=== PATIENT | female | born 2000 | race Caucasian/White ===

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

== ENCOUNTER 2019-05-05 19:53 | Emergency (ER) | payer SELFPAY ==
[~2019-05-05] VITALS: Ht 167.6 cm; Wt 80.5 kg
[2019-05-05 20:13] VITALS: Ht 167.6 cm; Wt 80.5 kg
[2019-05-05 21:55] VITALS: BP 100/70
== END 2019-05-05 21:45 | disposition home or self-care (01) ==
LOC: ED 19:53
DX: S83.004A Unspecified dislocation of right patella, initial encounter (principal); S86.911A Strain of unspecified muscle(s) and tendon(s) at lower leg level, right leg, initial encounter; W18.30XA Fall on same level, unspecified, initial encounter; Y93.89 Activity, other specified; Y92.89 Other specified places as the place of occurrence of the external cause; Y99.8 Other external cause status